=== PATIENT | male | born 1965 | race American Indian/Alaskan Native ===

== ENCOUNTER 2017-05-29 18:38 | Emergency (ER) | payer MEDICARE, MEDICAID ==
[2017-05-29 18:47] VITALS: BP 143/89
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
[2017-05-29] MEDS ORDERED: traMADol 50 MG Tab ONE (19:30)
== END 2017-05-29 19:41 | disposition home or self-care (01) ==
LOC: DL.ED 18:38
DX: S70.01XA Contusion of right hip, initial encounter (principal); S70.11XA Contusion of right thigh, initial encounter; I10 Essential (primary) hypertension; K21.9 Gastro-esophageal reflux disease without esophagitis; Z79.899 Other long term (current) drug therapy; W00.0XXA Fall on same level due to ice and snow, initial encounter
CPT/HCPCS: 99283; 99284

== ENCOUNTER 2017-06-03 05:00 | Day surgery (SDC) | payer MEDICARE, MEDICAID ==
[~2017-06-03 05:00] MED LIST: Dextrose 5%-0.45% NaCl 1,000 ML IV SCH; Sodium Chloride 0.9% 10 ML Syringe FLUSH PRN
[2017-06-03] MEDS ORDERED: fentaNYL 100 MCG/2 ML SDV IV ONE ×3 (05:01→06:36)
[2017-06-03] MEDS ORDERED: Midazolam 1 MG/ML 2 ML SDV IV ONE ×7 (05:01→06:42)
[2017-06-03] MEDS ORDERED: Midazolam 1 MG/ML 2 ML SDV ONE (05:58)
[2017-06-03] MEDS ORDERED: fentaNYL 100 MCG/2 ML SDV ONE (05:58)
[2017-06-03] MEDS ORDERED: Dextrose 5%-0.45% NaCl 1,000 ML IV SCH (06:00)
--- NOTE | 2017-06-03 07:28 | OR ---
DATE: 06/03/2017 PROCEDURE: Total colonoscopy. INSTRUMENT USED: CF-H180AL Olympus video colonoscope. PREMEDICATIONS: Fentanyl 100 mcg intravenous, Versed 4 mg intravenous. The procedure was done under pulse oximetry, BP recording, and athletic monitor. INDICATION: The patient with rectal bleeding and previous inadequate study. Restudy done with 2-day bowel preparation. Colonoscopic examination is done for detection of any polypoid lesions and removal, endoscopic hemostasis therapy if needed. DESCRIPTION OF PROCEDURE: Initial rectal exam showed some anal sphincter spasm. Rigid anoscopy showed hemorrhoids without bleeding from them. The colonoscope was passed with ease up to the ileocecal area, photographs were taken of the normal-appearing cecum, identified by landmarks of appendiceal orifice and double-bulged ileocecal folds. The examination was compromised in a few areas in the distal left colon due to the presence of solid fecal material that could not be aspirated. No bleeding was noted from any of the visualized areas at the commencement of the examination. No stricture. No vascular ectasia. No large isolated ulcerations seen. No evidence of diffuse inflammatory bowel disease in the form of friability, contact bleeding, or ulcerations. No polyp or tumor mass identified. Probing the proximal sides of folds and flexures, using adequate distention and clearing up the stool material, withdrawal of the scope was made, cecum to rectum time over 6 minutes. No bleeding was noted in any of the visualized areas at the completion of the examination. IMPRESSION: Internal hemorrhoids. PLAN: The patient tolerated the procedure well. [facility] /[id number] [place]
--- NOTE | 2017-06-03 08:37 | LETTER ---
06/03/2017 Yanci Ramírez MD [facility] [address] [place] [address] RE: TARAS CERVANTES : [address] Ramírez: Mr. Taras Cervantes had colonoscopic examination done this morning and he tolerated the procedure well. I herewith send a copy of the endoscopy note and photographs for your review. Thank you, Sincerely, [facility] /[id number]
[2017-06-03 09:58] VITALS: BP 135/84
== END 2017-06-03 08:50 | disposition home or self-care (01) ==
LOC: DL.ENDO 05:00
PROVIDERS: ATTEND Internal Medicine Gastroenterology
DX: K64.8 Other hemorrhoids (principal); K21.9 Gastro-esophageal reflux disease without esophagitis; E66.9 Obesity, unspecified; E55.9 Vitamin D deficiency, unspecified; F41.9 Anxiety disorder, unspecified; Z68.30 Body mass index [BMI] 30.0-30.9, adult
CPT/HCPCS: 45378; J2250; J3010; J7042

== ENCOUNTER 2018-04-19 12:55 | Emergency (ER) | payer OTHER, MEDICARE, MEDICAID ==
[2018-04-19 13:06] VITALS: BP 138/97
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
== END 2018-04-19 14:20 | disposition home or self-care (01) ==
LOC: DL.ED 12:55
DX: S16.1XXA Strain of muscle, fascia and tendon at neck level, initial encounter (principal); S40.012A Contusion of left shoulder, initial encounter; S60.011A Contusion of right thumb without damage to nail, initial encounter; I10 Essential (primary) hypertension; E66.9 Obesity, unspecified; Z79.899 Other long term (current) drug therapy; V59.49XA Driver of pick-up truck or van injured in collision with other motor vehicles in traffic accident, initial encounter
CPT/HCPCS: 72125; 73030-LT; 73140-F5; 99285

== ENCOUNTER 2020-05-01 05:14 | Day surgery (SDC) | payer MEDICAID, MEDICARE ==
[2020-05-01] MEDS ORDERED: Midazolam 1 MG/ML 2 ML SDV IV ONE ×7 (05:15→06:47)
[2020-05-01] MEDS ORDERED: fentaNYL 100 MCG/2 ML SDV IV ONE ×4 (05:15→06:49)
[2020-05-01] MEDS ORDERED: Sodium Chloride 0.9% 10 ML Syringe FLUSH PRN (06:00)
[2020-05-01] MEDS ORDERED: Dextrose 5%-0.45% NaCl 1,000 ML IV SCH (06:00)
[2020-05-01] MEDS ORDERED: fentaNYL 100 MCG/2 ML SDV ONE (06:13)
[2020-05-01] MEDS ORDERED: Midazolam 1 MG/ML 2 ML SDV ONE (06:13)
--- NOTE | 2020-05-01 07:33 | OR ---
DATE: 05/01/2020 PROCEDURE: Total colonoscopy, NBI, and cold snare polypectomy. INSTRUMENT USED: CF-TS233N Olympus video panendoscope. PREMEDICATIONS: Fentanyl 125 mcg intravenous, Versed 4 mg intravenous. The procedure was done under pulse oximetry, BP recording, and cardiac technician. INDICATIONS: The patient with rectal bleeding. Colonoscopic examination is done for detection of any polypoid lesions and removal, endoscopic hemostasis therapy if needed. DESCRIPTION OF PROCEDURE: Initial rectal exam was unremarkable. Rigid anoscopy shows moderate sized internal hemorrhoids without bleeding from them. The colonoscope was passed with ease up to the ileocecal area. Photographs were taken of the normal-appearing cecum, identified by landmarks of appendiceal orifice and double-bulged ileocecal folds. No bleeding was noted from any of the visualized areas at the commencement of the examination. The bowel preparation was found to be adequate, [place] Scale 3 in the all the regions, total score 6. No stricture. No vascular ectasia. No large isolated ulcerations seen. No evidence of diffuse inflammatory bowel disease in form of friability, contact bleeding, or ulcerations. Probing the proximal sides of folds and flexures using adequate distention and clearing of the stool material, withdrawal of the scope was made. In the distal descending colon, diminutive benign-appearing polyp was noted, NBI views were taken, photographs were obtained, cold snare polypectomy was done, the tissue was retrieved and sent for histopathology. No bleeding was noted from any of the visualized areas at the completion of examination. Few scattered diverticula were noted in the distal left colon. IMPRESSION: 1. Internal hemorrhoids. 2. Diminutive colonic polyp. 3. Diverticulosis. The patient tolerated the procedure well. [facility] /[id number]
[2020-05-01 09:18] VITALS: BP 111/68; PULSE 105
== END 2020-05-01 08:30 | disposition home or self-care (01) ==
LOC: DL.ENDO 05:14
PROVIDERS: ATTEND Internal Medicine Gastroenterology
DX: K63.5 Polyp of colon (principal); K57.30 Diverticulosis of large intestine without perforation or abscess without bleeding; K64.8 Other hemorrhoids; E66.09 Other obesity due to excess calories; K21.9 Gastro-esophageal reflux disease without esophagitis; E78.00 Pure hypercholesterolemia, unspecified; I10 Essential (primary) hypertension; Z68.35 Body mass index [BMI] 35.0-35.9, adult
CPT/HCPCS: 45385; J2250; J3010; J7042; 88305

== ENCOUNTER 2021-07-23 13:22 | Emergency (ER) | payer MEDICARE, OTHER ==
[2021-07-23 14:09] VITALS: BP 139/94
[2021-07-23 14:38] LABS: CORONAVIRUS COVID-19 NAA NEGATIVE (NEGATIVE)
[2021-07-23] MEDS ORDERED: Acetaminophen 500 MG Tab PO ONE (15:55)
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
[2021-07-23 16:07] VITALS: PULSE 80
== END 2021-07-23 16:07 | disposition home or self-care (01) ==
LOC: DL.ED 13:22
DX: J10.1 Influenza due to other identified influenza virus with other respiratory manifestations (principal); E78.00 Pure hypercholesterolemia, unspecified; I10 Essential (primary) hypertension; K21.9 Gastro-esophageal reflux disease without esophagitis; E66.9 Obesity, unspecified; Z68.36 Body mass index [BMI] 36.0-36.9, adult; Z79.899 Other long term (current) drug therapy; Z20.822 Contact with and (suspected) exposure to COVID-19
CPT/HCPCS: 0240U; 99284

== ENCOUNTER 2021-09-13 19:47 | Emergency (ER) | payer MEDICARE, OTHER ==
[2021-09-13 21:02] LABS: CORONAVIRUS COVID-19 NAA NEGATIVE (NEGATIVE)
[2021-09-13] MEDS ORDERED: Benzonatate 100 MG Cap PO ONE (23:22)
[2021-09-13 23:55] VITALS: BP 150/89; PULSE 88
== END 2021-09-13 23:40 | disposition home or self-care (01) ==
LOC: DL.ED 19:47
DX: J02.9 Acute pharyngitis, unspecified (principal); K21.9 Gastro-esophageal reflux disease without esophagitis; E66.9 Obesity, unspecified; E78.00 Pure hypercholesterolemia, unspecified; I10 Essential (primary) hypertension; Z68.36 Body mass index [BMI] 36.0-36.9, adult; Z79.899 Other long term (current) drug therapy; Z20.822 Contact with and (suspected) exposure to COVID-19
CPT/HCPCS: 0240U; 87081; 87430; 99283; A9270

== ENCOUNTER 2022-10-13 06:24 | Day surgery (SDC) | payer MEDICARE, OTHER ==
[2022-10-13] MEDS ORDERED: Dextrose 5%-0.45% NaCl 1,000 ML IV SCH (07:15)
[2022-10-13] MEDS ORDERED: Midazolam 1 MG/ML 2 ML SDV ONE (08:09)
[2022-10-13] MEDS ORDERED: fentaNYL 100 MCG/2 ML SDV ONE (08:09)
[2022-10-13] MEDS ORDERED: fentaNYL 100 MCG/2 ML SDV IV ONE ×3 (08:12→08:21)
[2022-10-13] MEDS ORDERED: Midazolam 1 MG/ML 2 ML SDV IV ONE ×6 (08:14→08:20)
[2022-10-13 08:45] VITALS: BP 127/87; PULSE 109
== END 2022-10-13 09:41 | disposition home or self-care (01) ==
LOC: DL.ENDO 06:24
PROVIDERS: ATTEND Internal Medicine Gastroenterology
DX: K64.8 Other hemorrhoids (principal); M06.9 Rheumatoid arthritis, unspecified; K21.9 Gastro-esophageal reflux disease without esophagitis; I10 Essential (primary) hypertension; E78.00 Pure hypercholesterolemia, unspecified; E66.09 Other obesity due to excess calories; Z68.37 Body mass index [BMI] 37.0-37.9, adult
CPT/HCPCS: 45378; J2250; J3010; J7042

== ENCOUNTER 2022-12-18 22:14 | Emergency (ER) | payer MEDICARE, OTHER | END 2022-12-18 23:45 | disposition left against medical advice (07) | LOC: DL.ED 22:14 | DX: Z53.21 Procedure and treatment not carried out due to patient leaving prior to being seen by health care provider (principal) ==

== ENCOUNTER 2022-12-21 21:06 | Emergency (ER) | payer MEDICARE, OTHER ==
[2022-12-21 21:32] VITALS: BP 132/81; PULSE 90
== END 2022-12-21 22:16 | disposition home or self-care (01) ==
LOC: DL.ED 21:06
DX: H61.23 Impacted cerumen, bilateral (principal); K21.9 Gastro-esophageal reflux disease without esophagitis; I10 Essential (primary) hypertension; E66.9 Obesity, unspecified; Z68.38 Body mass index [BMI] 38.0-38.9, adult; Z79.899 Other long term (current) drug therapy
CPT/HCPCS: 69210; 99282

== ENCOUNTER 2024-10-14 02:36 | Emergency (ER) | payer MEDICARE, OTHER ==
[2024-10-14] MEDS: Ondansetron 4 MG/2 ML SDV IVPUSH ONE (03:08)
[2024-10-14] MEDS: Sodium Chloride 0.9% 1,000 ML IV ONE ×2 (03:12→04:33)
[2024-10-14 03:15] LABS: BASOPHILS PERCENT AUTO 0.1 % (0.0-1.0); EOSINOPHILS PERCENT AUTO 3.1 % (1.0-3.0); HEMATOCRIT 45.2 % (40.0-54.0); HEMOGLOBIN 15.1 g/dL (14.0-18.0); LYMPHOCYTES PERCENT AUTO 10.7 % (20.5-50.1); MEAN CORPUSCULAR HGB CONC 33.4 g/dL (33.0-35.0); MEAN CORPUSCULAR VOLUME 80.9 fL (80-100); MONOCYTES PERCENT AUTO 6.2 % (2-8); NEUTROPHILS PERCENT AUTO 79.9 % (42.2-75.2); PLATELET COUNT,PLT 284 10^3/uL (150-450); RED BLOOD CELL COUNT 5.59 10^6/uL (4.6-6.2); WHITE BLOOD CELL COUNT,WBC 6.7 10^3/uL (5.0-10.0)
[2024-10-14 03:46] LABS: APPEARANCE,URINE SLIGHTLY CLOUDY (CLEAR); BILIRUBIN,URINE NEGATIVE (NEGATIVE); COLOR,URINE YELLOW (YELLOW); GLUCOSE,URINE NEGATIVE (NEGATIVE); KETONES,URINE NEGATIVE (NEGATIVE); LEUKOCYTE ESTERASE,URINE NEGATIVE (NEGATIVE); NITRITE,URINE NEGATIVE (NEGATIVE); OCCULT BLOOD,URINE NEGATIVE (NEGATIVE); PH,URINE 5.5 (5.0-9.0); PROTEIN,URINE 30 (NEGATIVE); UROBILINOGEN,URINE 0.2 mg/dL (0.2-1.0)
[2024-10-14 03:47] LABS: B-TYPE NATRIURETIC PEPTIDE,BNP < 5 pg/ml (0-100)
[2024-10-14 03:50] LABS: AMPHETAMINES,URINE NEGATIVE (NEGATIVE); BARBITURATES,URINE NEGATIVE (NEGATIVE); BENZODIAZEPINE,URINE NEGATIVE (NEGATIVE); MDMA (ECSTASY), URINE NEGATIVE (NEGATIVE); METHADONE,URINE NEGATIVE (NEGATIVE); METHAMPHETAMINES,URINE NEGATIVE (NEGATIVE); OPIATES,URINE NEGATIVE (NEGATIVE); OXYCODONE,URINE NEGATIVE (NEGATIVE); PHENCYCLIDINE,URINE NEGATIVE (NEGATIVE); TCA,URINE NEGATIVE (NEGATIVE)
[2024-10-14 03:58] LABS: BACTERIA,URINE FEW /HPF (0-FEW/HPF); EPITHELIAL CELLS,URINE RARE /HPF (NOT SEEN); MUCUS,URINE MANY /LPF (NOT SEEN); RBC,URINE 0-5 /HPF (0-5); WBC,URINE 0-5 /HPF (0-5/HPF)
[2024-10-14 04:29] LABS: A/G RATIO 0.8; ALANINE AMINOTRANSFERASE,ALT 46 U/L (16-63); ALBUMIN 3.6 g/dL (3.4-5.0); ALKALINE PHOSPHATASE 93 U/L (46-116); ANION GAP 18.1 mEq/L (7-13); ASPARTATE AMNIOTRANSFERASE,AST 25 U/L (15-37); BILIRUBIN TOTAL 0.5 mg/dL (0.2-1.0); BLOOD UREA NITROGEN,BUN 14 mg/dL (7-18); BUN/CREATININE RATIO 13.1 (No establ ref range); CALCIUM 8.7 mg/dL (8.5-10.1); CARBON DIOXIDE,CO2 20 mmol/L (21-32); CHLORIDE,CL 105 mmol/L (98-107); CREATININE 1.07 mg/dL (0.70-1.30); EST CRCL DRUG DOSING (CG) 74.86 mL/min; GLUCOSE RANDOM 170 mg/dL (70-99); LACTIC ACID 1.4 mmol/L (0.4-2.0); LIPASE 58 U/L (16-77); MAGNESIUM 1.9 mg/dL (1.8-2.4); POTASSIUM,K 4.1 mmol/L (3.5-5.1); PROTEIN TOTAL,TP 7.9 g/dL (6.4-8.2); SODIUM,NA 139 mmol/L (136-145)
[2024-10-14 04:30] LABS: ESTIMATED GFR 79 mL/min (>=60); ETHANOL BLOOD MEDICAL < 3 mg/dL (0)
[2024-10-14] MEDS: GI Cocktail Oral Solution 30 ML PO ONE (05:09)
[2024-10-14 05:14] VITALS: BP 128/74; PULSE 108
[2024-10-14] MEDS: Take Home: Ondansetron 4 MG Tab.DIS, 5 Tab Pack PO ONE (05:36)
== END 2024-10-14 05:41 | disposition home or self-care (01) ==
LOC: DL.ED 02:36
DX: R00.0 Tachycardia, unspecified (principal); R19.7 Diarrhea, unspecified; I10 Essential (primary) hypertension; E78.00 Pure hypercholesterolemia, unspecified; K21.9 Gastro-esophageal reflux disease without esophagitis; Z79.899 Other long term (current) drug therapy
CPT/HCPCS: 36415; 71045; 80053; 80305; 80307; 81001; 83605; 83690; 83735; 83880; 84443; 84484; 85025; 93005; 93010; 96361; 96374; 99284; A9270; J2405; J7030; Q0162